=== PATIENT | male | born 1995 | race African-American/Black ===

== ENCOUNTER 2023-09-08 07:50 | Emergency (ER) | payer SELFPAY ==
[2023-09-08] MEDS ORDERED: HYDROCODONE/APAP 10/325 TAB ONE (08:28)
[2023-09-08] MEDS ORDERED: KETOROLAC 30 MG/ML INJ ONE (08:29)
--- NOTE | 2023-09-08 08:37 | ER ---
Nurse's Notes [facility] Name: Tanika Byrne Age: 28 yrs Sex: Male : 1995 Arrival Date: 09/08/2023 Time: 07:50 Bed 5 Private MD: Diagnosis: Dental root caries;Dental caries, unspecified-ODONTOGENIC ABSCESS, 1ST LEFT UPPER MOLAR Presentation: 09/07 08:01 Chief complaint: Left sided facial swelling and left upper molar pain x 3 days. hb Coronavirus screen: At this time, the client does not indicate any symptoms associated with coronavirus-19. Ebola Screen: No symptoms or risks identified at this time. Initial Sepsis Screen: Does the patient meet any 2 criteria? HR > 90 bpm. No. Patient's initial sepsis screen is negative. Does the patient have a suspected source of infection? No. Patient's initial sepsis screen is negative. Risk Assessment: Do you want to hurt yourself or someone else? Patient reports no desire to harm self or others. Onset of symptoms was September 05, 2023. 08:01 Method Of Arrival: Ambulatory 08:01 Acuity: ESCOBAR 4 hb Triage Assessment: 08:02 General: Appears in no apparent distress. Behavior is calm, cooperative. Pain: Pain hb currently is 8 out of 10 on a pain scale. EENT: left sided facial swelling noted. Reports left upper molar pain. Neuro: Level of Consciousness is awake, alert, obeys commands, Oriented to person, place, time, situation. Cardiovascular: Patient's skin is warm and dry. Respiratory: Respiratory effort is even, unlabored, Respiratory pattern is regular, symmetrical. Historical: - Allergies: 08:02 No Known Allergies; hb - Home Meds: 08:02 None [Active]; hb - PMHx: 08:02 None; hb - PSHx: 08:02 None; hb - Immunization history:: Adult Immunizations up to date. - Infectious Disease History:: Denies. - Social history:: Smoking status: Patient reports the use of cigarette tobacco products, smokes one-half pack cigarettes per day. Screenin:05 [facility] ED Fall Risk Assessment (Adult) History of falling in the last 3 months, aa5 including since admission No falls in past 3 months (0 pts) Confusion or Disorientation No (0 pts) Intoxicated or Sedated No (0 pts) Impaired Gait No (0 pts) Mobility Assist Device Used No (0 pt) Altered Elimination No (0 pt) Score/Fall Risk Level 0 - 2 = Low Risk Oriented to surroundings, Maintained a safe environment, Educated pt \T\ family on fall prevention, incl call for assistance when getting out of bed. Abuse screen: Denies threats or abuse. Nutritional screening: No deficits noted. Tuberculosis screening: No symptoms or risk factors identified. Assessment: 08:05 General: Appears uncomfortable, Behavior is calm, cooperative. Pain: Complains of pain aa5 in left cheek Pain currently is 8 out of 10 on a pain scale. Quality of pain is described as throbbing, Pain began 2-3 days ago. Is continuous. Neuro: Level of Consciousness is awake, alert, obeys commands, Oriented to person, place, time, situation. Cardiovascular: Heart tones S1 S2 present Rhythm is regular. Respiratory: Airway is patent Respiratory effort is even, unlabored, Respiratory pattern is regular, symmetrical. GI: No signs and/or symptoms were reported involving the gastrointestinal system. : No signs and/or symptoms were reported regarding the genitourinary system. EENT: Reports toothache . Derm: Skin is dry, Skin is normal, Skin temperature is warm. Musculoskeletal: Range of motion: intact in all extremities. 08:40 Reassessment: Pt given crackers before PO medications. . aa5 09:09 Neuro: Level of Consciousness is awake, alert, obeys commands, Oriented to person, aa5 place, time, situation. Respiratory: Airway is patent Respiratory effort is even, unlabored, Respiratory pattern is regular, symmetrical. Derm: Skin is dry, Skin is normal, Skin temperature is warm. Vital Signs: 08:01 BP 134 / 104; Pulse 117; Resp 16; Temp 98.9(O); Pulse Ox 100% on R/A; Weight 68.04 kg; hb Height 5 ft. 8 in. ; Pain 8/10; 08:01 Body Mass Index 22.81 (68.04 kg, 172.72 cm) hb 08:01 Pain Scale: Adult hb ED Course: 07:54 Patient arrived in ED. ra3 07:56 Sigifredo Dave MD is Attending Physician. yana 07:57 Hillary France, RN is Primary Nurse. aa5 08:02 Triage completed. hb 08:02 Arm band placed on. hb 08:05 Client placed on continuous cardiac and pulse oximetry monitoring. NIBP monitoring hb applied. Pulse ox on. NIBP on. 08:05 Patient has correct armband on for positive identification. aa5 08:36 Lreoy Stone DDS is Referral Physician. yana 08:36 Referral Physician role handed off by Leroy Stone DDS yana 08:36 Leroy Stone DDS is Referral Physician. yana 09:10 No provider procedures requiring assistance completed. Patient did not have IV access aa5 during this emergency room visit. Administered Medications: 08:39 Not Given (per pharmacy is on back order/MD was notified. ): [id number] mg IM once hb 08:40 Drug: Ketorolac IM 60 mg IM once Route: IM; Site: right gluteus; aa5 09:09 Follow up: Response: No adverse reaction aa5 08:40 Drug: Clindamycin PO 300 mg PO once Route: PO; aa5 09:09 Follow up: Response: No adverse reaction aa5 08:41 Drug: [place] PO 10 mg-325 mg 1 tabs PO once Route: PO; aa5 09:09 Follow up: Response: No adverse reaction aa5 08:51 Drug: Rocephin (cefTRIAXone) IM 1 grams IM once Route: IM; Site: left gluteus; aa5 09:09 Follow up: Response: No adverse reaction aa5 Medication: 09:09 VIS not applicable for this client. aa5 Outcome: 08:37 Discharge ordered by MD. yana 09:10 Discharged to home ambulatory, with significant other, aa5 09:10 Condition: stable 09:10 Discharge instructions given to patient, Instructed on discharge instructions, follow up and referral plans. medication usage, Demonstrated understanding of instructions, follow-up care, medications, Prescriptions given X 2, 09:10 Patient left the ED. aa5 Signatures: Sigifredo Dave MD MD cha Calderon, Audri, RN RN aa5 Jammie Junior, MILDRED RN Lexi Alexander ra3
--- NOTE | 2023-09-08 08:37 | EDPHYS ---
Physician Documentation [facility] Name: Tanika Byrne Age: 28 yrs Sex: Male : 1995 Arrival Date: 09/08/2023 Time: 07:50 Bed 5 Private MD: ED Physician Sigifredo Dave HPI: 09/07 08:33 This 28 yrs old Male presents to ER via Ambulatory with complaints of Abscess yana - mouth/tooth problem. 08:33 The patient presents with an abscess of the left cheek. Description: confluent, yana erythematous. Onset: The symptoms/episode began/occurred 3 day(s) ago. Possible cause(s): DENTAL ABSCESS, BROKEN TOOTH. Associated signs and symptoms: The patient has no apparent associated signs or symptoms. Modifying factors: the symptoms are alleviated by remaining still, the symptoms are aggravated by pressure, touching. Severity of symptoms: At their worst the symptoms were mild, in the emergency department the symptoms are unchanged. The patient has experienced similar episodes in the past, several times. Historical: - Allergies: 08:02 No Known Allergies; hb - Home Meds: 08:02 None [Active]; hb - PMHx: 08:02 None; hb - PSHx: 08:02 None; hb - Immunization history:: Adult Immunizations up to date. - Infectious Disease History:: Denies. - Social history:: Smoking status: Patient reports the use of cigarette tobacco products, smokes one-half pack cigarettes per day. ROS: 08:34 Constitutional: Negative for fever, chills, and weight loss, Eyes: Negative for injury, yana pain, redness, and discharge, Neck: Negative for injury, pain, and swelling, Cardiovascular: Negative for chest pain, palpitations, and edema, Respiratory: Negative for shortness of breath, cough, wheezing, and pleuritic chest pain, Abdomen/GI: Negative for abdominal pain, nausea, vomiting, diarrhea, and constipation, Back: Negative for injury and pain, : Negative for injury, bleeding, discharge, and swelling, MS/Extremity: Negative for injury and deformity, Skin: Negative for injury, rash, and discoloration, Neuro: Negative for headache, weakness, numbness, tingling, and seizure, Psych: Negative for depression, anxiety, suicide ideation, homicidal ideation, and hallucinations, Allergy/Immunology: Negative for hives, rash, and allergies, Endocrine: Negative for neck swelling, polydipsia, polyuria, polyphagia, and marked weight changes, Hematologic/Lymphatic: Negative for swollen nodes, abnormal bleeding, and unusual bruising, 08:34 ENT: Positive for Gum pain Teeth pain Exam: 08:34 Constitutional: This is a well developed, well nourished patient who is awake, alert, yana and in no acute distress. Eyes: Pupils equal round and reactive to light, extra-ocular motions intact. Lids and lashes normal. Conjunctiva and sclera are non-icteric and not injected. Cornea within normal limits. Periorbital areas with no swelling, redness, or edema. ENT: Nares patent. No nasal discharge, no septal abnormalities noted. Tympanic membranes are normal and external auditory canals are clear. Oropharynx with no redness, swelling, or masses, exudates, or evidence of obstruction, uvula midline. Mucous membranes moist. Neck: Trachea midline, no thyromegaly or masses palpated, and no cervical lymphadenopathy. Supple, full range of motion without nuchal rigidity, or vertebral point tenderness. No Meningismus. Chest/axilla: Normal chest wall appearance and motion. Nontender with no deformity. No lesions are appreciated. Cardiovascular: Regular rate and rhythm with a normal S1 and S2. No gallops, murmurs, or rubs. Normal PMI, no JVD. No pulse deficits. Respiratory: Lungs have equal breath sounds bilaterally, clear to auscultation and percussion. No rales, rhonchi or wheezes noted. No increased work of breathing, no retractions or nasal flaring. Abdomen/GI: Soft, non-tender, with normal bowel sounds. No distension or tympany. No guarding or rebound. No evidence of tenderness throughout. Back: No spinal tenderness. No costovertebral tenderness. Full range of motion. Skin: Warm, dry with normal turgor. Normal color with no rashes, no lesions, and no evidence of cellulitis. MS/ Extremity: Pulses equal, no cyanosis. Neurovascular intact. Full, normal range of motion. Neuro: Awake and alert, GCS 15, oriented to person, place, time, and situation. Cranial nerves II-XII grossly intact. Motor strength 5/5 in all extremities. Sensory grossly intact. Cerebellar exam normal. Normal gait. Psych: Awake, alert, with orientation to person, place and time. Behavior, mood, and affect are within normal limits. 08:34 Head/face: Noted is swelling, tenderness, that is moderate, of the left cheek, Vital Signs: 08:01 BP 134 / 104; Pulse 117; Resp 16; Temp 98.9(O); Pulse Ox 100% on R/A; Weight 68.04 kg; hb Height 5 ft. 8 in. ; Pain 8/10; 08:01 Body Mass Index 22.81 (68.04 kg, 172.72 cm) hb 08:01 Pain Scale: Adult hb MDM: 07:56 Patient medically screened. yana 08:35 Differential diagnosis: abscess, cellulitis, dental caries, gingivitis, dental abscess, yana gingivostomatitis. Data reviewed: vital signs, nurses notes. Consideration of Admission/Observation Escalation of care including admission/observation considered. I considered the following discharge prescriptions or medication management in the emergency department Medications were administered in the Emergency Department. See MAR. Test considered but Not performed: Labs: NO LABS . Care significantly affected by the following chronic conditions: POOR DENTITION. Administered Medications: 08:39 Not Given (per pharmacy is on back order/MD was notified. ): [id number] mg IM once hb 08:40 Drug: Ketorolac IM 60 mg IM once Route: IM; Site: right gluteus; aa5 09:09 Follow up: Response: No adverse reaction aa5 08:40 Drug: Clindamycin PO 300 mg PO once Route: PO; aa5 09:09 Follow up: Response: No adverse reaction aa5 08:41 Drug: [place] PO 10 mg-325 mg 1 tabs PO once Route: PO; aa5 09:09 Follow up: Response: No adverse reaction aa5 08:51 Drug: Rocephin (cefTRIAXone) IM 1 grams IM once Route: IM; Site: left gluteus; aa5 09:09 Follow up: Response: No adverse reaction aa5 Disposition Summary: 09/08/23 08:37 Discharge Ordered Notes: Location: Home yana Problem: new yana Symptoms: have improved yana Condition: Stable yana Diagnosis - Dental root caries yana - Dental caries, unspecified - ODONTOGENIC ABSCESS, 1ST LEFT UPPER MOLAR yana Followup: yana - With: Private Physician - When: 2 - 3 days - Reason: Recheck today's complaints, Continuance of care, Re-evaluation by your physician Followup: [facility] - With: Leroy Stone DDS - When: 2 - 3 days - Reason: Recheck today's complaints, Continuance of care, Re-evaluation by your physician Followup: [facility] - With: Leroy Stone DDS - When: - Reason: Recheck today's complaints, Re-evaluation by your physician Discharge Instructions: - Discharge Summary Sheet [facility] - Dental Caries, Adult [facility] - Dental Pain [facility] - Dental Pain, [id number] [facility] - Diet and Dental Disease [facility] Forms: - Medication Reconciliation Form [facility] - Thank You Letter [facility] - Antibiotic Education [facility] - Prescription Opioid Use [facility] - Patient Portal Instructions [facility] - Leadership Thank You Letter [facility] Prescriptions: - Clindamycin HCl 300 mg Oral capsule - take 1 capsule ORAL route every 6 hours for 10 days; 28 capsule; Refills: 0, [facility] Product Selection Permitted - Ibuprofen 600 mg Oral Tablet - take 1 tablet ORAL route every 6 hours As needed take with food; 30 tablet; [facility] Refills: 0, Product Selection Permitted Signatures: Sigifredo Dave MD MD [facility] Hillary France, RN RN aa5 Jammie Junior RN RN
[2023-09-08] MEDS ORDERED: CEFTRIAXONE 1000 MG/VIAL ONE (08:42)
[2023-09-08] MEDS ORDERED: LIDOCAINE 1% MPF 2 ML AMPULE ONE (08:43)
[2023-09-08 12:55] VITALS: BP 134/104; TEMP 98.9; O2SAT 100
== END 2023-09-08 09:10 | disposition home or self-care (01) ==
LOC: ER 07:50
DX: K04.7 Periapical abscess without sinus (principal); K02.7 Dental root caries
CPT/HCPCS: 96372; 99284; J0696

== ENCOUNTER 2025-02-28 14:19 | Inpatient (IN) | payer SELFPAY ==
--- OUTSIDE RECORDS SUMMARY | 2025-02-28 14:23 | XMS REPORT | Continuity of Care Document ---
Author Name Unknown Address [address] [facility] [place]. [address] [place] [address] [facility] [place] Address [address] [facility]. [address] [place] [address] Care Team Providers Care Cushion Worker Name Role Phone Miranda Polanco Primary Care Physician Jenaro Whiteside Attending Clinician Sierra Quintero Attending Clinician [phone] Sierra COLLINS Attending Clinician Unavailable Allergies, Adverse Reactions, Alerts Allergy Name Allergy Type Status Severity Reaction(s) Onset Date Inactive Date Treating Clinician Comments Source NO KNOWN ALLERGIE S Drug Class Active [facility] Social History Social Habit Start Date Stop Date Quantity Comments Source Sex Assigned At [facility] Exposure to SARS-CoV-2 (event) Not sure [facility] Smoking Status Start Date Stop Date Source Unknown if ever smoked [facility] Medications Ordered Medication Name Filled Medication Name Start Date Stop Date Current Medication? Ordering Clinician Indication Dosage Frequency Signature (SIG) Comments Components Source HYDROcodone -acetaminop hen (NORCO) 10-325 mg tablet 1 tablet 12-16 19:00: 00 12-16 18:16 :00 No 1{tbl} 1 tablet, Oral, ONCE, 1 dose, Sun12/17/19 at 1400, Routine [facility] acetaminoph en-codeine 300-30 mg tablet 12-16 00:00: 00 Yes [id number] 1{tbl} Take 1 tablet by mouth every 4 (four) hours as needed for Pain (scale 4-6). Indication s: acute pain [facility] ibuprofen 600 mg tablet 12-16 00:00: 00 Yes [id number] 600mg Take 1 tablet by mouth every 6 (six) hours as needed for Pain (scale 4-6). [facility] Vital Signs Vital Name Observation Time Observation Value Comments Traci quintero Systolic blood pressure 2020-01-07 17:21:00 129 mm[Hg] [facility] Diastolic blood pressure 2020-01-07 17:21:00 79 mm[Hg] [facility] Heart rate 2020-01-07 17:21:00 93 /min [facility] Body temperature 2020-01-07 17:21:00 37.11 Ruthy [facility] Respiratory rate 2020-01-07 17:21:00 14 /min [facility] Body weight 2020-01-07 17:21:00 58.968 kg [facility] Oxygen saturation in Arterial blood by Pulse oximetry 2020-01-07 17:21:00 97 /min [facility] Systolic blood pressure 2019-12-17 19:00:00 135 mm[Hg] [facility] Diastolic blood pressure 2019-12-17 19:00:00 79 mm[Hg] [facility] Heart rate 2019-12-17 19:00:00 92 /min [facility] Respiratory rate 2019-12-17 19:00:00 16 /min [facility] Oxygen saturation in Arterial blood by Pulse oximetry 2019-12-17 19:00:00 98 /min [facility] Body temperature 2019-12-17 17:17:00 37.44 Ruthy [facility] Body weight 2019-12-17 17:17:00 63.504 kg [facility] BP Systolic 2024-07-18 14:10:00 120 mm[Hg] Rob Reyes BP Diastolic 2024-07-18 14:10:00 84 mm[Hg] [place] Reyes Weight Measured 2024-07-18 14:10:00 152.60 pounds Pilo Reyes Height Measured 2024-07-18 14:10:00 67.00 inches Pilo Reyes Body Temperature 2024-07-18 14:10:00 98.00 degrees Pilo F Eric Heart Rate 2024-07-18 14:10:00 87.00 /min Carrie en F Eric Respiratory Rate 2024-07-18 14:10:00 16.00 /min Pilo F Eric BP Systolic 2024-07-18 14:03:00 Step hen F Eric BP Diastolic 2024-07-18 14:03:00 [place] phen F Eric Weight Measured 2024-07-18 14:03:00 Pilo F Eric Height Measured 2024-07-18 14:03:00 Pilo F Eric Body Temperature 2024-07-18 14:03:00 Pilo F Eric Heart Rate 2024-07-18 14:03:00 Carrie en F Eric Respiratory Rate 2024-07-18 14:03:00 Pilo F Eric Body Temperature 2024-06-19 14:06:00 98.20 degrees Pilo F Eric Heart Rate 2024-06-19 14:06:00 90.00 /min Carrie en F Eric Respiratory Rate 2024-06-19 14:06:00 17.00 /min Pilo F Eric BP Systolic 2024-06-19 14:06:00 134 mm[Hg] Step hen F Eric BP Diastolic 2024-06-19 14:06:00 86 mm[Hg] [place] phen F Eric Weight Measured 2024-06-19 14:06:00 145.40 pounds Pilo F Eric Height Measured 2024-06-19 14:06:00 67.00 inches Pilo F Eric BP Systolic 2023-07-03 13:43:00 133 mm[Hg] Step hen F Eric BP Diastolic 2023-07-03 13:43:00 82 mm[Hg] [place] phen F Eric Weight Measured 2023-07-03 13:43:00 147.00 pounds Pilo F Eric Height Measured 2023-07-03 13:43:00 67.00 inches Pilo F Eric Body Temperature 2023-07-03 13:43:00 98.20 degrees Pilo F Eric Heart Rate 2023-07-03 13:43:00 110.00 /min Step hen F Eric Respiratory Rate 2023-07-03 13:43:00 19.00 /min Pilo F Eric BP Systolic 2023-01-19 08:24:00 122 mm[Hg] Step hen F Eric BP Diastolic 2023-01-19 08:24:00 83 mm[Hg] [place] Reyes Weight Measured 2023-01-19 08:24:00 142.80 pounds Pilo Reyes Height Measured 2023-01-19 08:24:00 67.00 inches Pilo Reyes Body Temperature 2023-01-19 08:24:00 98.60 degrees Pilo Reyes Heart Rate 2023-01-19 08:24:00 86.00 /min Carrie Reyes Respiratory Rate 2023-01-19 08:24:00 Pilo Reyes Procedures Procedure Date / Time Performed Performing Clinicia n Source XR FOOT 3+ VW RIGHT 2019-12-17 17:43:08 Sierra Collins [facility] XR ANKLE 3+ VW RIGHT 2019-12-17 17:42:52 Sierra Collins [facility] NOTICE OF PRIVACY PRACTICES 2019-12-17 17:09:13 Doctor Unassigned, [place] [facility] CONSENT/REFUSAL FOR DIAGNOSIS AND TREATMENT 2019-12-17 17:08:56 Doctor Unassigned, [place] [facility] Encounters Start Date/Time End Date/Time Encounter Type Admission Type Attending [facility] Facility Care Department Encounter ID Source 2024-07-18 14:02:28 2024-07-18 14:02:28 Outpatient [facility] [id number] Pilo Reyes 2024-07-18 00:00:00 2024-07-18 00:00:00 Outpatient Visit [facility] [id number] Pilo Reyes 2024-06-19 14:08:08 2024-06-19 14:08:08 Outpatient [facility] [id number] Pilo Reyes 2024-06-19 00:00:00 2024-06-19 00:00:00 Outpatient Visit [facility] [id number] Pilo Reyes 2023-07-03 13:34:40 2023-07-03 13:34:40 Outpatient [facility] [id number] Pilo Reyes 2023-01-19 08:17:16 2023-01-19 08:17:16 Outpatient [facility] [id number] Pilo Reyes 2020-01-07 12:24:00 2020-01-07 13:16:00 Emergency Jenaro Ch[facility] [id number] [facility] 2020-01-07 12:20:00 2020-01-07 12:20:00 Emergency X [facility] ERT [id number] [facility] 2019-12-17 12:17:52 2019-12-17 14:22:00 Emergency Sierra Collins [facility] [id number] [facility] 2019-12-17 12:17:52 2019-12-17 12:17:52 Emergency X Sierra COLLINS [facility] ERT [id number] [facility] Results Test Description Test Time Test Comments Results Result Comments Source XR ANKLE 3+ VW RIGHT 17:58:50 Cuboid, navicular, second, third and fifth metatarsal fractures withassociated soft tissue swelling. EXAM: XR FOOT 3+ VW RIGHT, EXAM: XR ANKLE 3+ VW RIGHT HISTORY: injury COMPARISON: None FINDINGS: Imaging of the foot and ankle demonstrates an os trigonum. Corticalinterruption is seen through the proximal fifth metatarsal base withintra-articular extension into the fifth TMT joint. Nondisplaced corticalinterruption is also seen through the proximal third metatarsaldiametaphysis. Cortical impaction is seen over the anterior and lateralarticular margin of the cuboid. A minimally displaced fracture through thesecond metatarsal neck is seen. Cortical interruption is seen through thelateral aspect of the navicular with talonavicular and navicular cuneiformextension. There is swelling about the dorsal midfoot. An os trigonum ispresent. The ankle mortise is anatomic. [facility], [facility]iant Results Inft - 12/17/2019 12:59 PM CDTEXAM:XR FOOT 3+ VW RIGHT,EXAM:XR ANKLE 3+ VW RIGHTHISTORY:injury COMPARISON:NoneFINDINGS: Imaging of the foot and ankle demonstrates an os trigonum. Corticalinterruption is seen through the proximal fifth metatarsal base withintra-articular extension into the fifth TMT joint. Nondisplaced corticalinterruption is also seen through the proximal third metatarsaldiametaphysis. Cortical impaction is seen over the anterior and lateralarticular margin of the cuboid. A minimally displaced fracture through thesecond metatarsal neck is seen. Cortical interruption is seen through thelateral aspect of the navicular with talonavicular and navicular cuneiformextension. There is swelling about the dorsal midfoot. An os trigonum ispresent. The ankle mortise is anatomic.IMPRESSIONCuboi d, navicular, second, third and fifth metatarsal fractures withassociated soft tissue swelling. [facility] XR FOOT 3+ VW RIGHT 17:58:50 Cuboid, navicular, second, third and fifth metatarsal fractures withassociated soft tissue swelling. EXAM: XR FOOT 3+ VW RIGHT, EXAM: XR ANKLE 3+ VW RIGHT HISTORY: injury COMPARISON: None FINDINGS: Imaging of the foot and ankle demonstrates an os trigonum. Corticalinterruption is seen through the proximal fifth metatarsal base withintra-articular extension into the fifth TMT joint. Nondisplaced corticalinterruption is also seen through the proximal third metatarsaldiametaphysis. Cortical impaction is seen over the anterior and lateralarticular margin of the cuboid. A minimally displaced fracture through thesecond metatarsal neck is seen. Cortical interruption is seen through thelateral aspect of the navicular with talonavicular and navicular cuneiformextension. There is swelling about the dorsal midfoot. An os trigonum ispresent. The ankle mortise is anatomic. [facility], Radiant Results Inft User - 12/17/2019 12:59 PM CDTEXAM:XR FOOT 3+ VW RIGHT,EXAM:XR ANKLE 3+ VW RIGHTHISTORY:injury COMPARISON:NoneFINDINGS: Imaging of the foot and ankle demonstrates an os trigonum. Corticalinterruption is seen through the proximal fifth metatarsal base withintra-articular extension into the fifth TMT joint. Nondisplaced corticalinterruption is also seen through the proximal third metatarsaldiametaphysis. Cortical impaction is seen over the anterior and lateralarticular margin of the cuboid. A minimally displaced fracture through thesecond metatarsal neck is seen. Cortical interruption is seen through thelateral aspect of the navicular with talonavicular and navicular cuneiformextension. There is swelling about the dorsal midfoot. An os trigonum ispresent. The ankle mortise is anatomic.IMPRESSIONCuboi d, navicular, second, third and fifth metatarsal fractures withassociated soft tissue swelling. [facility] Notes Date/Time Note Provider Source Pilo Moser [facility]2025-01-16 00:00:00 Pilo Moser [facility]
[2025-02-28] MEDS ORDERED: NA CHLORIDE 0.9% 1,000 ML ONE (14:54)
[2025-02-28 15:05] LABS: Absolute Lymphocytes (CBC) 1.2 K/uL (0.7-4.9); Hematocrit 45.8 % (39.6-49.0); Hemoglobin 15.7 g/dL (13.6-17.9); MCH 29.8 pg (27.0-35.0); MCHC 34.3 g/dL (32.0-36.0); MCV 87.1 fL (80-100); MPV 7.2 fL (7.6-11.3); Nucleated RBC Absolute Count 0.0 (0-0); Nucleated Red Blood Cells % 0.1 % (0-0); RBC Red Blood Cell Count 5.26 M/uL (4.33-5.43); White Blood Count 13.10 thou/uL (4.3-10.9)
[2025-02-28 15:27] LABS: ALT/SGPT 35.0 U/L (16-61); AST/SGOT 25.0 U/L (15-37); Albumin 4.2 g/dL (3.4-5.0); Albumin/Globulin Ratio 1.0 (1.1-1.8); Alkaline Phosphatase 78.0 U/L (45-117); Anion Gap 15.1 mEq/L (5.0-15.0); BUN Blood Urea Nitrogen 15.0 mg/dL (7-18); Globulin 4.4 g/dL (2.3-3.5); Glucose Level 116.0 mg/dL (74-106); Lipase 16.0 U/L (13-75); Potassium 4.1 mEq/L (3.5-5.1)
[2025-02-28] MEDS ORDERED: ONDANSETRON 4 MG/2 ML VIAL IV PRN (16:01)
--- NOTE | 2025-02-28 16:02 | ER ---
Nurse's Notes [facility] Name: Tanika Byrne Age: 29 yrs Sex: Male : 1995 Arrival Date: 02/28/2025 Time: 14:19 Bed 7 Private MD: Diagnosis: Acute kidney failure, unspecified Presentation: 02/28 14:24 Chief complaint: EMS states: N/V AND CRAMPING SINCE AM. Coronavirus screen: At this bp time, the client does not indicate any symptoms associated with coronavirus-19. Ebola Screen: No symptoms or risks identified at this time. Initial Sepsis Screen: Does the patient meet any 2 criteria? No. Patient's initial sepsis screen is negative. Does the patient have a suspected source of infection? No. Patient's initial sepsis screen is negative. Risk Assessment: Do you want to hurt yourself or someone else? Patient reports no desire to harm self or others. Onset of symptoms was February 28, 2025 at 07:00. Care prior to arrival: Medication(s) given: Normal saline infusion, 1000 mL, zofran 4 mg, IV initiated. 20 GA, in the left antecubital area, Glucose check: 115. 14:24 Method Of Arrival: EMS: [facility] bp 14:24 Acuity: ESCOBAR 3 bp Triage Assessment: 14:25 General: Appears in no apparent distress. uncomfortable, Behavior is cooperative, bp appropriate for age, anxious. Pain: Denies pain. EENT: No deficits noted. Neuro: Level of Consciousness is awake, alert, obeys commands, Oriented to Appropriate for age. Cardiovascular: Rhythm is sinus tachycardia. Respiratory: No deficits noted. GI: Reports nausea, vomiting. : No deficits noted. Derm: No deficits noted. Musculoskeletal: No deficits noted. Historical: - Allergies: 14:25 No Known Allergies; bp - Immunization history:: Adult Immunizations up to date. - Infectious Disease History:: Denies. - Social history:: Smoking status: Patient denies any tobacco usage or history of. Screenin:27 [facility] ED Fall Risk Assessment (Adult) History of falling in the last 3 months, bp including since admission No falls in past 3 months (0 pts) Confusion or Disorientation No (0 pts) Intoxicated or Sedated No (0 pts) Impaired Gait No (0 pts) Mobility Assist Device Used No (0 pt) Altered Elimination No (0 pt) Score/Fall Risk Level 0 - 2 = Low Risk Oriented to surroundings. Abuse screen: Denies threats or abuse. Denies injuries from another. Nutritional screening: No deficits noted. Tuberculosis screening: No symptoms or risk factors identified. Assessment: 14:27 General: Appears uncomfortable. bp 15:07 Reassessment: No changes from previously documented assessment. Patient is alert, bp oriented x 3, equal unlabored respirations, skin warm/dry/pink. GI: Abdomen is non-distended. 17:34 Reassessment: Patient appears in no apparent distress at this time. Patient is alert, bp oriented x 3, equal unlabored respirations, skin warm/dry/pink. Vital Signs: 14:24 BP 150 / 94; Pulse 100; Resp 20; Temp 98; Pulse Ox 98% ; bp 15:06 BP 128 / 90; Pulse 107; Resp 16; Pulse Ox 99% ; bp 17:33 BP 128 / 93; Pulse 95; Resp 16; Pulse Ox 95% ; bp 18:30 BP 119 / 85; Pulse 97; Resp 16; Pulse Ox 99% ; bp ED Course: 14:20 Patient arrived in ED. kb 14:21 Melina Singh FNP-C [facility] kb 14:21 Gary Bernardo MD is Attending Physician. kb 14:23 Jackson Robbins, MILDRED is Primary Nurse. bp 14:25 Triage completed. bp 14:25 Arm band placed on. bp 14:27 Patient has correct armband on for positive identification. bp 14:27 Maintain EMS IV. Dressing intact. Good blood return noted. Site clean \T\ dry. Gauge \T\ bp site: 20 LAC. 14:54 CBC with Diff Sent. cm10 14:54 CMP Sent. cm10 14:54 Lipase Sent. cm10 16:01 Prince Palma MD is Hospitalizing Provider. kb 17:34 No provider procedures requiring assistance completed. Patient admitted, IV remains in bp place. 18:45 Provided Education on: NA. bp Administered Medications: 14:59 Drug: NS 0.9% IV 1000 ml IV at 1 bolus Per protocol; to be given as a bolus over 60 bp minutes Route: IV; Rate: 1 bolus; Site: left forearm; 18:45 Follow up: IV Status: Completed infusion bp Medication: 18:45 VIS not applicable for this client. bp Outcome: 16:01 Decision to Hospitalize by Provider. kb 17:34 Admitted to Tele accompanied by tech, via wheelchair, bp 17:34 Condition: stable 17:34 Instructed on the need for admit, 18:44 Patient left the ED. bp Signatures: Melina Singh, BERTHA-Jackson Tariq RN RN bp Gill Pyane RN RN cm10 Corrections: (The following items were deleted from the chart) 14:25 14:25 PMHx: RHABDOMYOLISIS; bp bp
--- NOTE | 2025-02-28 16:02 | EDPHYS ---
Physician Documentation [facility] Name: Tanika Byrne Age: 29 yrs Sex: Male : 1995 Arrival Date: 02/28/2025 Time: 14:19 Bed 7 Private MD: ED Physician Gary Bernardo HPI: 02/28 14:23 This 29 yrs old Black Male presents to ER via Unassigned with complaints of nausea, kb vomiting, cramping. 14:23 Pt is a 29 year old male who presents for nausea, vomiting, and muscle cramps that kb started this morning. States he has been having similar symptoms after drinking, but never this bad. States he had 2 twisted teas last night. Reports history of rhabdomyolysis and kidney failure in 2021. . Historical: - Allergies: 14:25 No Known Allergies; bp - Immunization history:: Adult Immunizations up to date. - Infectious Disease History:: Denies. - Social history:: Smoking status: Patient denies any tobacco usage or history of. ROS: 14:22 Constitutional: As per HPI kb Exam: 14:22 Constitutional: This is a well developed, well nourished patient who is awake, alert, kb and in no acute distress. Head/Face: Normocephalic, atraumatic. ENT: Moist Mucous membranes Respiratory: Respirations even and unlabored. No increased work of breathing. Talking in full sentences Abdomen/GI: Soft, non-tender. No distention Skin: Warm, dry with normal turgor. Normal color. MS/ Extremity: Pulses equal, no cyanosis. Neurovascular intact. Full, normal range of motion. Neuro: Awake and alert, GCS 15, oriented to person, place, time, and situation. 14:22 Cardiovascular: Rate: tachycardic, 15:06 ECG was reviewed by the Attending Physician. Vital Signs: 14:24 BP 150 / 94; Pulse 100; Resp 20; Temp 98; Pulse Ox 98% ; bp 15:06 BP 128 / 90; Pulse 107; Resp 16; Pulse Ox 99% ; bp 17:33 BP 128 / 93; Pulse 95; Resp 16; Pulse Ox 95% ; bp 18:30 BP 119 / 85; Pulse 97; Resp 16; Pulse Ox 99% ; bp MDM: 14:21 Medical Screening Exam initiated kb 14:23 Data reviewed: vital signs, nurses notes. kb 16:00 Differential diagnosis: Nonspecific abd pain, viral gastroenteritis, Abnormal kb electrolytes, dehydration, rhabdomyolysis. Consideration of Admission/Observation Patient was admitted/placed on observation. Escalation of care including admission/observation considered. Management of patient was discussed with the following: Hospitalist: Dr Helms accepts pt for admission. Historians other than the Patient: EMS: [facility]. Counseling: I had a detailed discussion with the patient and/or guardian regarding the historical points, exam findings, and any diagnostic results supporting the discharge/admit diagnosis, lab results, the need for further work-up and treatment in the hospital. 02/28 14:21 Order name: CBC with Diff; Complete Time: 15:14 kb 02/28 14:21 Order name: CMP; Complete Time: 15:28 kb 02/28 14:21 Order name: Lipase; Complete Time: 15:28 kb 02/28 14:21 Order name: CPK; Complete Time: 15:28 kb 02/28 16:05 Order name: Lactate w/ 2H reflex if indic. [facility] 02/28 16:05 Order name: Magnesium [facility] 02/28 16:05 Order name: Phosphorus [facility] 02/28 16:05 Order name: UA Rfx Kishan Cult if indicated [facility] 02/28 16:05 Order name: Basic Metabolic Panel [facility] 02/28 16:05 Order name: Basic Metabolic Panel [facility] 02/28 16:05 Order name: CBC with Automated Diff [facility] 02/28 16:05 Order name: CBC with Automated Diff [facility] 02/28 16:05 Order name: Creatine Phosphokinase [facility] 02/28 16:05 Order name: Creatine Phosphokinase [facility] 02/28 16:05 Order name: Creatine Phosphokinase [facility] 02/28 16:05 Order name: Creatine Phosphokinase [facility] 02/28 16:06 Order name: Renal Ultrasound-Complete [facility] 02/28 16:12 Order name: Abdomen [facility] 02/28 14:21 Order name: EKG; Complete Time: 14:22 kb 02/28 14:21 Order name: IV Saline Lock; Complete Time: 14:28 kb 02/28 14:21 Order name: Labs collected and sent; Complete Time: 14:54 kb 02/28 14:21 Order name: EKG - Nurse/Tech; Complete Time: 14:59 kb EC:06 Rate is 106 beats/min. Rhythm is regular. QRS [place] is Normal. SD interval is normal at kb 116 msec. QRS interval is normal at 76 msec. QT interval is normal at 435 msec. Administered Medications: 14:59 Drug: NS 0.9% IV 1000 ml IV at 1 bolus Per protocol; to be given as a bolus over 60 bp minutes Route: IV; Rate: 1 bolus; Site: left forearm; 18:45 Follow up: IV Status: Completed infusion bp Disposition Summary: 02/28/25 16:01 Hospitalization Ordered Notes: Hospitalization Status: Observation kb Provider: Prince palak Palma Location: Telemetry/MedSurg (observation) kb Condition: Stable kb Problem: new kb Symptoms: are unchanged kb Bed/Room Type: Standard Room Assignment: 410(02/28/25 16:30) eb Diagnosis - Acute kidney failure, unspecified kb Forms: - Medication Reconciliation Form kb - SBAR form kb - Leadership Thank You Letter kb Addendum: 03/05/2025 07:02 Co-signature as Attending Physician, Gary Bernardo MD I reviewed the patient's care r n provided by the Advanced Practice Provider and agree with the diagnosis and treatment plan. Signatures: Dispatcher [employer] Melina Valera, TANK HOUSE OPERATOR HELPER-C TANK HOUSE OPERATOR HELPER-Ckb Gary Bernardo MD MD rn Peltier, Brian, RN RN bp Botello, Elizabeth eb Corrections: (The following items were deleted from the chart) 02/28 14:25 14:25 PMHx: RHABDOMYOLISIS; bp bp 16:30 16:01 kb eb
--- NOTE | 2025-02-28 16:08 | P.HP ---
Certification for Inpatient Patient admitted to: Observation With expected LOS: <2 Midnights Practitioner: I am a practitioner with admitting privileges, knowledge of patient current condition, hospital course, and medical plan of care. Services: Services provided to patient in accordance with Admission requirements found in Title 42 Section 412.3 of the Code of Federal Regulations Patient History Date of Service: 02/28/25 Reason for admission: dane History of Present Illness: Patient is a 29-year-old -[place] male who presented to the ER with nausea, vomiting and abdominal cramping. He has a history of excessive alcohol consumption and consumes at least 6 pack of beer on a daily basis until recently. He has not been able to do so for the past 4 weeks due to intractable nausea and vomiting. Patient decided to switch beer brand and engage in drinking twisted tea but this only exacerbated his symptoms. He is reporting a nonbloody emesis and abdominal pain. He is here due to worsening symptoms, which have been going on for the past few days. Workup in the ER revealed a creatinine of 2.29. His baseline renal function is unknown. CPK is 105. He has a history of rhabdomyolysis and kidney failure in 2021, unclear if it was for the same reason. During my evaluation, patient was still in distress but endorses clinical improvement. He attributes this to volume challenge that he received in the ER. Physical Examination - Physical Exam General: Acute distress HEENT: Atraumatic, Normocephalic Respiratory: Clear to auscultation bilaterally, Normal air movement Cardiovascular: No edema, Normal pulses, Regular rate/rhythm, Normal S1 S2 Integumentary: Other (Multiple tattoos) Neurological: Normal speech - Studies Laboratory Data (last 24 hrs) 02/28/25 02/28/25 14:51 14:51 WBC 13.10 H Hgb 15.7 Hct 45.8 Plt Count 423 H Sodium 140 Potassium 4.1 BUN 15 Creatinine 2.29 H Glucose 116 H Total Bilirubin 1.1 H AST 25 ALT 35 Alkaline Phosphatase 78 Lipase 16 Assessment and Plan - Plan Assessment This is a generally healthy 29-year-old -[place] male was present to the ER with acute renal failure after presents with nausea, vomiting and cramping. He has a creatinine of 2.29. Baseline creatinine is unknown. Acute kidney failure Mild rhabdomyolysis Intractable nausea and vomiting Suspected gastritis Chronic alcoholism Plan: Will admit under observation with telemetry Aggressive volume repletion, antiemetics and acid suppression therapy Monitor for GI bleeding Renal ultrasound Pain control - Advance Directives Does patient have a Living Will: No Does patient have a Durable POA for Healthcare: No
[2025-02-28] MEDS ORDERED: SODIUM CHLORIDE 0.9% 10ML INJ IV PRN (16:37)
[2025-02-28] MEDS ORDERED: HYDROMORPHONE HCL 1 MG/ML INJ IV PRN (16:38)
[2025-02-28] MEDS ORDERED: HEPARIN 5000 UNIT/ML 1 ML VIAL SQ SCH (17:00)
--- NOTE | 2025-02-28 18:50 | RAD REPORT ---
EXAMINATION: CT ABDOMEN AND PELVIS WITHOUT CONTRAST CLINICAL INDICATION: Abdominal pain. Intractable vomiting TECHNIQUE: CT abdomen and pelvis was performed, as per department protocol. IV contrast and oral was not administered.Axial, sagittal and coronal reconstructions were obtained. One or more of the following dose reduction techniques were used: Automated exposure control, adjustment of the mA and/o r kV according to the patient size, and/or iterative reconstruction. Unless otherwise specified, incidental findings do not require dedicated imaging follow-up. [id number].. Oral contrast given. IV cont rast not administered which limits evaluation of solid organs and vessels. COMPARISON: No prior exam. FINDINGS: The liver, spleen, pancreas, adrenals and kidneys appear grossly normal No gross abnormality of the stomach.. Bowel caliber and wall thickness appears normal No evidence of diverticulitis Normal appendix. Tiny umbilical hernia IMPRESSION: No acute abnormality displayed
[2025-02-28 20:19] VITALS: O2SAT 99
[2025-02-28 20:54] VITALS: BP 135/81; TEMP 98.4
[2025-02-28 21:04] VITALS: BMI 21.4
[2025-02-28] MEDS: NA CHLORIDE 0.9% 1,000 ML IV SCH (21:05)
[2025-02-28] MEDS: PANTOPRAZOLE 40 MG INJ IVP SCH (21:05)
--- NOTE | 2025-02-28 21:17 | RAD REPORT ---
EXAMINATION: US RENAL CLINICAL INDICATION: Acute renal insufficiency TECHNIQUE: Real-time ultrasonography of the kidneys performed. COMPARISON: No prior exam. FINDINGS: Right kidney measures 10 cm with a normal echotexture. Left kidney measures 10 cm with normal echotexture. No hydronephrosis No gross abnormality bladder. IMPRESSION: No significant abnormalities displayed
--- NOTE | 2025-03-01 00:32 | P.PN ---
Date of Service: 03/01/25 Patient is a 29-year-old male admitted yesterday with BILL and was started on continuous IV fluid . jewel supervisor called and notified me that patient wants to leave AMA because he wants his [id number] baby to stay at the bedside with his significant other overnight, but per policy as noted by the ground wood supervisor that baby cannot stay in the hospital. I went and spoke to the patient and explained to him the importance of receiving IV fluid to rescue his kidneys, but despite all of the explanation patient still requested to leave AGAINST MEDICAL ADVICE. <Leroy Alvarez - Last Filed: 03/01/25 00:27> Patient admitted by Dr. Palma. I was to assume care of patient this morning 03/01, however, patient left overnight against medical advice. Please see above note and Dr. Palma's H&P for clinical details. <Lino Bernardo - Last Filed: 03/01/25 11:43>
== END 2025-03-01 00:20 | disposition left against medical advice (07) | DRG 683 ==
LOC: ER 14:19 → ERHOLD 16:01 → 4TH 17:01
PROVIDERS: ADMIT Internal Medicine; ATTEND Hospitalist
DX: N17.9 Acute kidney failure, unspecified (principal); M62.82 Rhabdomyolysis; F10.20 Alcohol dependence, uncomplicated; Z53.29 Procedure and treatment not carried out because of patient's decision for other reasons
CPT/HCPCS: 36415; 74176; 76770; 80053; 82550; 83690; 85025; 93005; 96360; 96361; 99285; J2470; J7030